=== PATIENT | female | born 1950 | race Caucasian/White ===

== ENCOUNTER 2016-10-03 10:34 | Emergency (ER) | payer OTHER, BC ==
[~2016-10-03] VITALS: Ht 154.9 cm; Wt 69.9 kg
[~2016-10-03 10:34] MED LIST: ASPIR-LOW81 MG PO; Aspirin E.C. PO; B COMPLETE1 EACH PO; BETA CAROT25000 UNIT PO; BOTOX100 UNITS IJ; BOTOX100 UNITS IM; BOTOX200 UNIT PO; CELEBREX PO; CELEBREX200 MG PO; CIPRO500 MG PO; CYANOCOBAL1000 MCG/2 IM; DIAZEPAM5 MG PO; DURAGESIC25 MCG TD; FENTANYL1 EAC5 TD; IMITREX6 MG/0.53 SC; LEVOTHROID100 MCG PO; LEVOTHYROXINE100 MCG PO; LEXAPRO10 MG PO; LEXAPRO20 MG PO; LIDOCAINE PO; MELATONIN300 MCG PO; MELATONIN5 M3 PO; MYLANTA PO; NAPROSYN500 MG PO; NITROFURANTOIN100 MG PO; NITROGLYCERIN0.4 MG SL; PERCOCET 5/31 TABLET PO; PERCOCET 7.51 TABLET PO; PRENATAL ONE T1 EACH PO; PRENATAL TABLE1 EAC3 PO; RAPAFLO8 MG PO; ROCEPHIN 2 GM VI2 GM IM; ROCEPHIN 2 GM VI2 GM IV; SUPER B COMPLEX SC; SYNTHROID100 MCG PO; TOPAMAX100 MG PO; TOPIRAGEN100 MG PO; TOPIRAMATE100 MG PO; Topamax PO; VALIUM5 MG PO; VITAMIN B12-FO1 EACH PO; VITAMIN D250000 UNIT PO
[2016-10-03 12:18] LABS: ADD MIUA? YES; BILIRUBIN NEGATIVE; BLOOD LARGE; GLUCOSE (STRIP) NEGATIVE; KETONES NEGATIVE; LEUKOCYTES MODERATE; NITRITE NEGATIVE; PROTEIN (STRIP) 100; SPECIFIC GRAVITY 1.012 (1.000-1.030); UROBILINOGEN 0.2 MG/DL (0.2-1.0)
[2016-10-03 12:20] LABS: COLOR LT.RED ((YELLOW))
[2016-10-03 12:27] LABS: BACTERIA 2+ /HPF; CALCIUM OXALATE CRYSTALS 4+ /HPF; EPITHELIAL CELLS 1+ /HPF; MUCUS TRACE /LPF; RED BLOOD CELLS TNTC /HPF (0-5); WHITE BLOOD CELLS TNTC /HPF (0-5)
[2016-10-03 12:28] LABS: EOSINOPHIL COUNT 0.1 K/uL (0-0.3); HEMATOCRIT 40.5 % (36.0-46.0); IMMATURE GRANULOCYTE (%) 0.6 % (0.0-0.7); INSTRUMENT ABS NEUTROPHIL CT 3.3 K/uL; LYMPHOCYTE COUNT 1.5 K/uL (1.0-2.8); MCH 31.3 PG (29.0-34.0); MCHC 33.3 G/DL (30.0-36.0); MCV 93.8 FL (83-99); MEAN PLAT.VOLUME 9.7 uM^3 (9.5-12.4); MONOCYTE (%) 5.1 % (3-12); MONOCYTE COUNT 0.3 K/uL (0-0.8); NEUTROPHIL (%) 64.5 % (45-76); NEUTROPHIL COUNT 3.3 K/uL (1.8-6.4); PLATELET COUNT 193 K/uL (156-360); RBC DIS.WIDTH-CV 12.5 % (11.8-14.6); RBC DIS.WIDTH-SD 42.9 % (39-53); RED BLOOD COUNT 4.32 M/uL (3.80-5.20); WHITE BLOOD COUNT 5.1 K/uL (4.1-10.2)
[2016-10-03 12:49] LABS: CHLORIDE 108 mEq/L (99-109); POTASSIUM 3.9 mEq/L (3.7-5.4); SODIUM 141 mEq/L (136-147)
[2016-10-03 12:51] LABS: GLUCOSE 98 mg/dL (70-99)
[2016-10-03 12:52] LABS: ANION GAP 7 MEQ/L (2-14)
[2016-10-03 12:54] LABS: GFR ESTIMATE (CALCULATED) 53 mL/min/
[2016-10-03 12:55] LABS: UREA NITROGEN (BUN) 14 mg/dL (9-23)
[2016-10-03] MEDS ORDERED: CIPRO500 MG PO (13:45)
[2016-10-03] MEDS ORDERED: PERCOCET 5/31 TABLET PO (13:45)
[2016-10-03] MEDS ORDERED: ZOFRAN ODT4 MG PO (13:45)
[2016-10-03] MEDS ORDERED: FLOMAX0.4 MG PO (13:45)
[2016-10-03] MEDS ORDERED: CELECOXIB200 MG PO (13:52)
[2016-10-03] MEDS ORDERED: LEVOTHYROXINE88 MCG PO (13:53)
[2016-10-03] MEDS ORDERED: ERGOCALCIF50000 UNIT PO (13:55)
[2016-10-03] MEDS ORDERED: LO-DOSE ASPIRIN81 M1 PO (13:55)
[2016-10-03] MEDS ORDERED: TRILEPTAL300 MG PO (13:57)
[2016-10-03 14:06] VITALS: BP 129/64
== END 2016-10-03 14:08 | disposition home or self-care (01) ==
LOC: EME 10:34
PROVIDERS: Physician Assistant
DX: N20.0 Calculus of kidney (principal); R31.9 Hematuria, unspecified; K57.30 Diverticulosis of large intestine without perforation or abscess without bleeding; Z90.710 Acquired absence of both cervix and uterus; Z90.49 Acquired absence of other specified parts of digestive tract
CPT/HCPCS: 74176; 80048; 81003; 85025; 87077; 87086; 87186; 99281; 99284; J1885; J3010; J7030

== ENCOUNTER → 2017-03-26 | Outpatient (CLI) | payer OTHER, BC ==
[~2017-03-26] MED LIST changes: +CELECOXIB200 MG PO; +ERGOCALCIF50000 UNIT PO; +FLOMAX0.4 MG PO; +LEVOTHYROXINE88 MCG PO; +LO-DOSE ASPIRIN81 M1 PO; +TRILEPTAL300 MG PO; +ZOFRAN ODT4 MG PO
== END | disposition home or self-care (01) ==
LOC: NUC 10:00
DX: S22.42XD Multiple fractures of ribs, left side, subsequent encounter for fracture with routine healing (principal); M41.85 Other forms of scoliosis, thoracolumbar region; M19.042 Primary osteoarthritis, left hand; M19.041 Primary osteoarthritis, right hand; M17.0 Bilateral primary osteoarthritis of knee; M19.072 Primary osteoarthritis, left ankle and foot; M19.071 Primary osteoarthritis, right ankle and foot; Z98.1 Arthrodesis status
CPT/HCPCS: 78315; A9503